=== PATIENT | female | born 1980 | race Caucasian/White ===

== ENCOUNTER 2022-12-19 11:32 | Inpatient (IN) | payer OTHER ==
[~2022-12-19] VITALS: Ht 160 cm; Wt 82.1 kg
[~2022-12-19 11:32] MED LIST: ALPR.5T PO; CPR500T PO; FRS325T PO; OXYC-12 PO; PREN1TAB25 PO
[2022-12-19] MEDS ORDERED: NS IV 1000 ML 1,000 ML IV STA ×2 (11:41→12:19)
[2022-12-19] MEDS ORDERED: ASPIRIN 81 MG CHEWABLE TABLET PO ONE (11:45)
[2022-12-19 11:47] LABS: BASOPHILS # (AUTO) 0.1 10^3/uL (0.0-0.1); BASOPHILS % (AUTO) 0 % (0-10); EOSINOPHILS # (AUTO) 0.1 10^3/uL (0.0-0.3); EOSINOPHILS % (AUTO) 0 % (0-10); HEMATOCRIT 48 % (35-52); HEMOGLOBIN 16.6 g/dL (11.5-16.0); LYMPHOCYTES % (AUTO) 6 % (12-44); MEAN CORPUSCULAR HEMOGLOBIN 32 pg (25-34); MEAN CORPUSCULAR HGB CONC 35 g/dL (32-36); MEAN CORPUSCULAR VOLUME 93 fL (80-99); MEAN PLATELET VOLUME 10.6 fL (9.0-12.2); MONOCYTES # (AUTO) 1.2 10^3/uL (0.0-1.0); MONOCYTES % (AUTO) 4 % (0-12); NEUTROPHILS # (AUTO) 28.5 10^3/uL (1.8-7.8); NEUTROPHILS % (AUTO) 88 % (42-75); PLATELET COUNT 523 10^3/uL (130-400); WHITE BLOOD COUNT 32.4 10^3/uL (4.3-11.0)
--- NOTE | 2022-12-19 11:48 | ED Chest Pain ---
General Chief Complaint: Cardiac/General Problems Stated Complaint: CHEST PAINS Nursing Triage Note: Patient c/o Lt. sided chest pain with shortness of breath that started about 1.5 hrs ago. Patient c/o dizziness and numbness to bilat. hands. Patient states she did become diaphoretic with onset of chest pain. Patient denies any N/V, back into back, up into jaw, or down Lt. Arm. Patient denies any pain into RUQ. Patient states she was at work when her pain started. Patient denies any recent fevers, cough, cold, or congestion. Patient denies any edema to bilat. LE. Source: patient Exam Limitations: no limitations History of Present Illness Date Seen by Provider: Dec 19, 2022 Time Seen by Provider: 11:47 Initial Comments Patient is a 42-year-old female who presents ED with left-sided chest pain. This pain started about an hour and a half ago. 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 She started feeling dizzy with this sharp pressure-like pain to the left-sided chest. She had associated shortness of breath. She states the chest pain has improved. Rates pain 3 out of 10. She started having cramping in her upper extremities. She appeared diaphoretic on arrival. She denies any nausea vomiting but reports diarrhea over the past 2 weeks. She reports between 3-8 episodes of watery stool daily without any blood or mucus. No pain with urination frequent urination. She denies cough, runny nose, sore throat, ear pain. She denies of any known fever. Denies history of coronary artery disease, CHF. She states she she was on a medication for her heart and states this started with a C. Patient denies of any headache, visual changes, unilateral muscle weakness or sensory changes. She does report some abdominal cramping the discomfort of the past 2 weeks. She states she has been eating and drinking but not as much. Denies of any recent antibiotic use. History of C- sections Allergies and Home Medications Allergies Coded Allergies: acetaminophen (Verified Allergy, Unknown, 12/19/22) propoxyphene napsylate (Verified Allergy, Unknown, 12/19/22) Patient Home Medication List Home Medication List Reviewed: Yes Vit#96/Ferrous Fum/Fa ( Tablet) 1 Each Tablet, 1 EACH PO DAILY, (Reported) Entered as Reported by: NERY BARROS on 06/30/122006 Review of Systems Review of Systems Constitutional: No diaphoresis; dizziness, malaise, weakness EENTM: No Eye Pain Respiratory: Denies Cough Cardiovascular: Chest Pain Gastrointestinal: Abdominal Pain, Diarrhea; Denies Nausea, Denies Vomiting Genitourinary: Denies Burning, Denies Discharge, Denies Drainage, Denies Frequency Musculoskeletal: No back pain, No joint pain Skin: No change in color, No change in hair/nails All Other Systems Reviewed Negative Unless Noted: Yes Past Tvdlkzw-Kpynuu-Fwnrcx Hx Immunizations Up To Date Tetanus Booster (TDap): More than 5yrs PED Vaccines UTD: Yes Past Medical History Last Menstrual Period: Dec 19, 2022 Reproductive Disorders: No Sexually Transmitted Disease: No HIV/AIDS: No Physical Exam Vital Signs Vital Signs - First Documented 12/19/22 12/19/22 11:33 11:50 Temp 37.0 Pulse 158 Resp 24 B/P (MAP) 166/131 (143) Pulse Ox 100 O2 Delivery Room Air Capillary Refill : Height, Weight, BMI Height: '" Weight: lbs. oz. kg; 32.00 BMI Method:Stated General Appearance: No Apparent Distress, WD/WN HEENT: PERRL/EOMI, TMs Normal, Normal ENT Inspection, Pharynx Normal Neck: Full Range of Motion, Normal Inspection, Non Tender, Supple Respiratory: Chest Non Tender, Lungs Clear, Normal Breath Sounds, No Accessory Muscle Use, No Respiratory Distress Cardiovascular: No Gallop, No JVD, No Murmur, Tachycardia Gastrointestinal: Normal Bowel Sounds, No Organomegaly, No Pulsatile Mass Extremity: Normal Capillary Refill, Normal Inspection, Normal Range of Motion Neurologic/Psychiatric: Alert, Oriented x3, No Motor/Sensory Deficits, 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, 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 as 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 Skin: Normal Color, Warm/Dry Focused Exam Lactate Level 12/19/22 11:54: Lactic Acid Level 6.95*H Lactic Acid Level Laboratory Tests Test 12/19/22 11:54 Lactic Acid Level 6.95 MMOL/L (0.50-2.00) *H Progress/Results/Core Measures Results/Orders Lab Results Laboratory Tests Test 12/19/22 11:36 12/19/22 11:54 12/19/22 12:03 9/8/23 13:00 Range/Units White Blood Count 32.4 *H 4.3-11.0 10^3/uL Red Blood Count 5.14 H 3.80-5.11 10^6/uL Hemoglobin 16.6 H 11.5-16.0 g/dL Hematocrit 48 35-52 % Mean Corpuscular Volume 93 80-99 fL Mean Corpuscular Hemoglobin 32 25-34 pg Mean Corpuscular Hemoglobin Concent 35 32-36 g/dL Red Cell Distribution Width 14.9 H 10.0-14.5 % Platelet Count 523 H 130-400 10^3/uL Mean Platelet Volume 10.6 9.0-12.2 fL Immature Granulocyte % (Auto) 1 % Neutrophils (%) (Auto) 88 H 42-75 % Lymphocytes (%) (Auto) 6 L 12-44 % Monocytes (%) (Auto) 4 0-12 % Eosinophils (%) (Auto) 0 0-10 % Basophils (%) (Auto) 0 0-10 % Neutrophils # (Auto) 28.5 H 1.8-7.8 10^3/uL Lymphocytes # (Auto) 2.0 1.0-4.0 10^3/uL Monocytes # (Auto) 1.2 H 0.0-1.0 10^3/uL Eosinophils # (Auto) 0.1 0.0-0.3 10^3/uL Basophils # (Auto) 0.1 0.0-0.1 10^3/uL Immature Granulocyte # (Auto) 0.4 H 0.0-0.1 10^3/uL Neutrophils % (Manual) 88 % Lymphocytes % (Manual) 7 % Monocytes % (Manual) 5 % Blood Morphology Comment NORMAL Prothrombin Time 13.7 12.2-14.7 SEC INR Comment 1.0 0.8-1.4 Activated Partial Thromboplast Time 29 24-35 SEC D-Dimer 3.53 H 0.00-0.49 UG/ML Sodium Level 133 L 135-145 MMOL/L Potassium Level 2.6 L 3.6-5.0 MMOL/L Chloride Level 87 L 98-107 MMOL/L Carbon Dioxide Level 19 L 21-32 MMOL/L Anion Gap 27 H 5-14 MMOL/L Blood Urea Nitrogen 11 7-18 MG/DL Creatinine 1.37 H 0.60-1.30 MG/DL Estimat Glomerular Filtration Rate 49 BUN/Creatinine Ratio 8 Glucose Level 152 H 70-105 MG/DL Calcium Level 10.1 8.5-10.1 MG/DL Corrected Calcium 9.8 8.5-10.1 MG/DL Magnesium Level 1.6 1.6-2.4 MG/DL Total Bilirubin 1.4 H 0.1-1.0 MG/DL Aspartate Amino Transf (AST/SGOT) 20 5-34 U/L Alanine Aminotransferase (ALT/SGPT) 21 0-55 U/L Alkaline Phosphatase 160 H 40-136 U/L Myoglobin 154.6 H 10.0-92.0 NG/ML Troponin I < 0.028 <0.028 NG/ML B-Type Natriuretic Peptide 16.0 <100.0 PG/ML Total Protein 8.3 H 6.4-8.2 GM/DL Albumin 4.4 3.2-4.5 GM/DL Lipase 62 8-78 U/L Thyroid Stimulating Hormone (TSH) 1.58 0.35-4.94 UIU/ML Lactic Acid Level 6.95 *H 0.50-2.00 MMOL/L Influenza Type A (RT-PCR) Not Detected Not Detecte Influenza Type B (RT-PCR) Not Detected Not Detecte SARS-CoV-2 RNA (RT-PCR) Not Detected Not Detecte Urine Color YELLOW Urine Clarity CLOUDY Urine pH 5.0 5-9 Urine Specific [place] 1.010 L 1.016-1.022 Urine Protein 2+ H NEGATIVE Urine Glucose (UA) NEGATIVE NEGATIVE Urine Ketones 1+ H NEGATIVE Urine Nitrite NEGATIVE NEGATIVE Urine Bilirubin 1+ H NEGATIVE Urine Urobilinogen 0.2 < = 1.0 MG/DL Urine Leukocyte Esterase NEGATIVE NEGATIVE Urine RBC (Auto) 3+ H NEGATIVE Urine RBC 5-10 H /HPF Urine WBC 2-5 /HPF Urine Squamous Epithelial Cells 25-50 H /HPF Urine Crystals PRESENT H /LPF Urine Amorphous Sediment FEW PRO URATES H /LPF Urine Bacteria FEW H /HPF Urine Casts NONE /LPF Urine Mucus NEGATIVE /LPF Urine Culture Indicated NO Urine Test NEGATIVE NEGATIVE My Orders Orders - THERESA ORNELAS PA Ekg Tracing (12/19/22 11:33) Cbc With Automated Diff (12/19/22 11:41) Magnesium (12/19/22 11:41) Chest 1 View, Ap/Pa Only (12/19/22 11:41) Comprehensive Metabolic Panel (12/19/22 11:41) Myoglobin Serum (12/19/22 11:41) Protime With Inr (12/19/22 11:41) Partial Thromboplastin Time (12/19/22 11:41) O2 (12/19/22 11:41) Monitor-Rhythm Ecg Trace Only (12/19/22 11:41) Ed Iv/Invasive Line Start (12/19/22 11:41) Lipase (12/19/22 11:41) Bnp [place] (12/19/22 11:41) Fibrin Degradation Products (12/19/22 11:41) Troponin I [place] (12/19/22 11:41) Aspirin Chewable Tablet (Aspirin Chewabl (12/19/22 11:45) Ns Iv 1000 Ml (Ns Iv 1000 Ml) (12/19/22 11:41) Thyroid Stimulating Hormone (12/19/22 11:41) Manual Differential (12/19/22 11:36) Blood Culture (12/19/22 11:48) Lactic Acid Analyzer (12/19/22 11:48) Blood Culture (12/19/22 11:48) Piperacillin/Tazobactam (Piperacillin/Ta (12/19/22 12:00) Covid 19 Inhouse Test (12/19/22 11:50) Influenza A And B By Pcr (12/19/22 11:50) Urinalysis (12/19/22 11:53) Hcg,Qualitative Urine (12/19/22 11:53) Potassium Chloride (Tablet) (Potassium C (12/19/22 12:00) Potassium Cl 10meq/50ml Ivpb (Kcl 10 Meq (12/19/22 12:00) Ns Iv 1000 Ml (Ns Iv 1000 Ml) (12/19/22 12:19) Ct [place] Chest/Noang Abd-Pelv W (12/19/22 12:16) Ed Admission (Communication) (12/19/22 13:14) Medications Given in ED Current Medications Medications Dose Ordered Sig/Baljinder Route Start Time Stop Time Status Last Admin Dose Admin Aspirin 324 mg ONCE ONCE PO 12/19/22 11:45 12/19/22 11:46 DC 12/19/22 11:46 324 MG Iohexol 73 ml ONCE ONCE IV 12/19/22 12:45 12/19/22 12:46 DC 12/19/22 12:33 73 ML Piperacillin Sod/ Tazobactam Sod 4.5 gm/Sodium Chloride 100 ml @ 200 mls/hr ONCE ONCE IV 12/19/22 12:00 12/19/22 12:29 DC 12/19/22 12:13 200 MLS/HR Potassium Chloride 40 meq ONCE ONCE PO 12/19/22 12:00 12/19/22 12:01 DC 12/19/22 12:12 40 MEQ Potassium Chloride 50 ml @ 50 mls/hr ONCE ONCE IV 12/19/22 12:00 12/19/22 12:59 DC 12/19/22 12:49 50 MLS/HR Sodium Chloride 100 ml ONCE ONCE IV 12/19/22 12:45 12/19/22 12:46 DC 12/19/22 12:34 80 ML Vital Signs/I&O 12/19/22 12/19/22 12/19/22 11:33 11:50 13:09 Temp 37.0 37.0 Pulse 158 117 Resp 24 18 B/P (MAP) 166/131 (143) 166/122 Pulse Ox 100 O2 Delivery Room Air Room Air Room Air Blood Pressure Mean: 143 Comment Sinus tachycardia with short CT interval, possible atrial flutter, nonspecific ST and T wave abnormality, 155 bpm, QRS duration at 69 MS, QTc 379 MS Departure Communication (PCP) Reviewed previous ER visits, H&P, lab testing. Differential diagnosis, ACS, pericarditis, PE, diverticulitis, colitis, UTI. History of hypertension and smoking. Episode of dizziness left-sided chest pain with shortness of breath and paresthesia in her upper extremities about an hour and a half before arrival. Cramping in her upper extremities. She was tachypneic. Controlled h er breathing which did improve. She had a heart rate of 155. Appears to be in sinus tachycardia. Cardiac work-up was initiated. Rated chest pain 3 out of 10. No recent travels or surgeries. Denies history of coronary artery disease, CHF. Denies of any leg swelling or pain. EKG shows sinus tachycardia at 155 bpm. Generalized lab work was ordered her white blood count came back at 32,000. She was afebrile. Added blood cultures lactic acid and broad-spectrum antibiotics Zosyn. She was started on a liter of fluid. After talking with patient she has been having diarrhea for the past 2 or 3 weeks with some abdomin al pain. Denies of any blood or mucousy stools. No history of inflammatory bowel disease. She was not anemic. Left shift. Chemistry showed sodium 133, potassium 2.6, chloride 87, MARKOS creatinine 1.37, GFR 48, lactic acid 2.95, blood sugar 151, normal BNP and troponin. Elevated D-dimer at 3. Normal TSH. CT angio of the chest with not angio of the lower abdomen pelvis was ordered. CT angio chest was negative for PE, pneumonia. CT abdomen pelvis positive for colitis. COVID influenza was negative. Heart rate improved to about 114. Was started on a second liter of fluid. Pain improved. She received 40 mill equivalent of oral potassium and 10 mEq of IV potassium. Normal magnesium. Does not appear to be cardiac. Patient appears dehydrated with severe sepsis secondary to colitis. Patient was discussed with Dr. Felix hospitalist who agreed to accept patient to cardiac stepdown. Urinalysis without strong evidence of infection but did show hematuria, protein, ketone. Impression Primary Impression: Severe sepsis Additional Impression: Colitis Disposition: ADMITTED INPATIENT Condition: Stable Admissions Decision to Admit Reason: Admit from ER (General) Decision to Admit/Date: Dec 19, 2022 Time/Decision to Admit Time: 13:07 Departure-Patient Inst. Referrals: NERY TRONCOSO MD (PCP/Family) Primary Care Physician THERESA ORNELAS Dec 19, 2022 11:48
[2022-12-19 11:54] LABS: ALBUMIN 4.4 GM/DL (3.2-4.5); CHLORIDE 87 MMOL/L (98-107); POTASSIUM 2.6 MMOL/L (3.6-5.0); SODIUM 133 MMOL/L (135-145)
[2022-12-19 11:55] LABS: CALCIUM 10.1 MG/DL (8.5-10.1)
[2022-12-19 11:56] LABS: GLUCOSE 152 MG/DL (70-105); TOTAL PROTEIN 8.3 GM/DL (6.4-8.2)
[2022-12-19 11:57] LABS: CARBON DIOXIDE 19 MMOL/L (21-32)
[2022-12-19 11:58] LABS: BILIRUBIN,TOTAL 1.4 MG/DL (0.1-1.0)
[2022-12-19 12:00] LABS: ALKALINE PHOSPHATASE 160 U/L (40-136); CREATININE SERUM 1.37 MG/DL (0.60-1.30); GFR ESTIMATED 49
[2022-12-19] MEDS ORDERED: POTASSIUM CL 10MEQ/50ML IVPB 50 ML IV ONE (12:00)
[2022-12-19] MEDS ORDERED: POTASSIUM CHLORIDE 20 MEQ TABLET PO ONE (12:00)
[2022-12-19] MEDS ORDERED: PIPERACILLIN/Tazobactam 4.5 GM in NS (IVPB) 100 ML 100 ML IV ONE (12:00)
[2022-12-19 12:01] LABS: BUN/CREATININE RATIO 8
[2022-12-19 12:03] LABS: ALANINE AMINOTRANSFERASE 21 U/L (0-55); MAGNESIUM 1.6 MG/DL (1.6-2.4)
[2022-12-19 12:04] LABS: LIPASE 62 U/L (8-78)
[2022-12-19 12:06] LABS: FIBRIN DEGRADATION PRODUCTS 3.53 UG/ML (0.00-0.49); PROTHROMBIN TIME PATIENT 13.7 SEC (12.2-14.7)
[2022-12-19 12:19] LABS: LYMPHOCYTES % (MANUAL) 7 %; MONOCYTES % (MANUAL) 5 %; NEUTROPHILS % (MANUAL) 88 %; RBC MORPH NORMAL
[2022-12-19] MEDS ORDERED: HOLD METFORMIN - RECEIVED CONTRAST 20 ML VIAL IV SCH (12:45)
[2022-12-19] MEDS ORDERED: NS 100 ML (IVPB) BAG IV ONE (12:45)
[2022-12-19] MEDS ORDERED: IOHEXOL 350 MG/ML 100 ML (OMNIPAQUE 350) VIAL IV ONE (12:45)
--- NOTE | 2022-12-19 12:49 | Diagnostic Imaging Report ---
INDICATION: Chest pain. TECHNIQUE: Frontal chest obtained at 12:25 p.m. FINDINGS: Heart and mediastinal silhouette are normal in appearance. The lungs are clear. There is no pneumothorax or pleural fluid. IMPRESSION: Negative chest. Dictated by: Dictated on workstation # [id number]
--- NOTE | 2022-12-19 12:52 | Diagnostic Imaging Report ---
INDICATION: generalzied abd pain, dyspnea, chest pain CTA chest, abdomen and pelvis Thin axial sections through the chest, abdomen and pelvis are obtained following intravenous contrast bolus. Multiplanar MIP images were reconstructed and reviewed. All CT scans use one or more of the following dose optimizing techniques: automated exposure control, MA and/or KvP adjustment based on patient size and exam type or iterative reconstruction. CT angiogram chest: The thoracic aorta is normal caliber. No dissection is identified. The pulmonary arterial system is without evidence of thromboembolism. No filling defects are seen within central, lobar or segmental branches. No pericardial or pleural fluid is identified. No pulmonary infiltrates, nodules or masses are detected. IMPRESSION: No evidence of pulmonary embolism or acute aortic disease. CT abdomen and pelvis: Liver demonstrates some mild generalized low-attenuation consistent with hepatic steatosis. Gallbladder is unremarkable. No liver mass or biliary duct dilatation is seen. The pancreas and spleen are unremarkable. Right adrenal gland is unremarkable. There is a mass arising from the left adrenal gland measuring 2.7 x 2.4 cm. This is mixed density and indeterminate. The left kidney is unremarkable. Right kidney does contain a small approximately 2 mm nonobstructing calculus. No ureteral calculi or hydronephrosis is seen. Bladder is decompressed. Aorta is nonaneurysmal. There does appear to be diffuse wall thickening involving the ascending, transverse and descending colon with mild surrounding inflammation consistent with a nonspecific colitis. Small bowel is unremarkable. There is no obstruction. No free fluid or fluid collection is seen. The uterus and ovaries are unremarkable. IMPRESSION: 1. Hepatic steatosis. 2. Nonobstructing right-sided nephrolithiasis. 3. Diffuse colonic wall thickening consistent with nonspecific colitis. Dictated by: Dictated on workstation # [id number]
[2022-12-19 13:12] LABS: BACTERIA,URINE FEW /HPF; BILIRUBIN,URINE 1+ (NEGATIVE); CLARITY,URINE CLOUDY; COLOR,URINE YELLOW; GLUCOSE, URINE (UA) NEGATIVE (NEGATIVE); KETONES,URINE 1+ (NEGATIVE); LEUKOCYTE ESTERASE ,URINE NEGATIVE (NEGATIVE); NITRITE,URINE NEGATIVE (NEGATIVE); PROTEIN,URINE 2+ (NEGATIVE); SQUAMOUS EPITHELIAL CELL,UR 25-50 /HPF
[2022-12-19 13:13] LABS: AMORPHOUS SEDIMENT,UR FEW AMOR URATES /LPF
[2022-12-19] MEDS ORDERED: MILK OF MAGNESIA 400 MG/5 ML 30 ML UDC PO PRN (14:00)
[2022-12-19] MEDS ORDERED: MELATONIN 3 MG TABLET PO PRN (14:00)
[2022-12-19] MEDS ORDERED: ONDANSETRON INJECTION 4 MG/2 ML (SDV) IV PRN (14:00)
[2022-12-19] MEDS ORDERED: BENZONATATE 100 MG CAPSULE PO PRN (14:00)
[2022-12-19] MEDS ORDERED: ANTACID SUSPENSION 30 ML UDC PO PRN (14:00)
[2022-12-19 14:05] VITALS: BP 145/120
[2022-12-19] MEDS: LACTATED RINGERS 1,000 ML 1,000 ML IV SCH ×2 (14:19→20:46)
--- NOTE | 2022-12-19 14:30 | History & Physical-Hospitalist ---
History of Present Illness HPI/Chief Complaint Patient is a 42-year-old female with past medical history of hypertension and tobacco abuse who presented to the emergency department as of breath. She reports she has been sick for roughly 2 weeks with abdominal pain and diarrhea. 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 She was found to be quite tachycardic with a heart rate in the 150s on arrival. EKG revealed this to be sinus tachycardia. Her troponin was negative. Labs returned and she had a leukocytosis of 32,[address] of her chest abdomen and pelvis was done which was concerning for colitis. She was admitted for sepsis. Since getting fluids she reports feeling much better already. She denies any nausea or vomiting mostly to drink if she could. Source: patient Date Seen 12/19/22 Time Seen by a Provider: 14:29 Attending Physician Cynthia Holloway MD PCP Admitting Physician: Jorge Boone MD Attending Physician: Jorge Boone MD Referring Physician Date of Admission Dec 19, 2022 at 13:34 Home Medications & Allergies Home Medications Reviewed patient Home Medication Reconciliation performed by pharmacy medication reconciliations pharmacy technician assistant and/or nursing. Patients Allergies have been reviewed. Allergies Allergies Coded Allergies propoxyphene napsylate (Verified Allergy, Unknown, 12/19/22) Past Uwmwyen-Ucvcvl-Fzthvl Hx Patient Social History Marrital Status: Tobacco Use?: Yes Tobacco type used: Cigarettes Smoking Status: Current Everyday Smoker Approx how many per day: 10 Smokeless Tobacco Frequency: Current Everyday User Use of E-Cig and/or Vaping dev: No Substance use?: No Alcohol Use?: No Alcohol Frequency: Once in a while Pt feels they are or have been: No Immunizations Up To Date Date of Influenza Vaccine: Apr 13, 2012 Hepatitis A: Yes Hepatitis B: Yes PED Vaccines UTD: Yes Current Status status: No status: No Communicates: Verbally Primary Language: Dominican Preferred Spoken Language: Dominican Is interpretation needed?: No Implanted or Applied Medical D: None Past Medical History Hypertension Sexually Transmitted Disease: No HIV/AIDS: No Family Medical History Reviewed Nursing Family Hx No Pertinent Family Hx Review of Systems Constitutional: see HPI Physical Exam Physical Exam Vital Signs Vital Signs - First Documented 12/19/22 12/19/22 11:33 11:50 Temp 37.0 Pulse 158 Resp 24 B/P (MAP) 166/131 (143) Pulse Ox 100 O2 Delivery Room Air Capillary Refill : Less Than 3 Seconds Height, Weight, BMI Height: '" Weight: lbs. oz. kg; 30.85 BMI Method:Stated General Appearance: No Apparent Distress, WD/WN Respiratory: Lungs Clear, No Respiratory Distress Cardiovascular: Regular Rate, Rhythm, No Murmur Gastrointestinal: Normal Bowel Sounds, Non Tender, Soft Extremity: No Calf Tenderness, No Pedal Edema Neurologic/Psychiatric: Alert, Oriented x3 Results Results/Procedures Labs Laboratory Tests 12/19/22 11:36 12/20/22 05:12 Patient resulted labs reviewed. Imaging: Reviewed Imaging Report Imaging [facility]. [place], [place] NAME: HORACIO PALOMARES [facility] REC#: [id number] PT STATUS: REG ER : 1980 PHYSICIAN: THERESA ORNELAS ADMIT DATE: 12/19/22/ER Draft Date of Exam:12/19/22 CT REJI CHEST/NOANG ABD-PELV W INDICATION: generalzied abd pain, dyspnea, chest pain CTA chest, abdomen and pelvis Thin axial sections through the chest, abdomen and pelvis are obtained following intravenous contrast bolus. Multiplanar MIP images were reconstructed and reviewed. All CT scans use one or more of the following dose optimizing techniques: automated exposure control, MA and/or KvP adjustment based on patient size and exam type or iterative reconstruction. CT angiogram chest: The thoracic aorta is normal caliber. No dissection is identified. The pulmonary arterial system is without evidence of thromboembolism. No filling defects are seen within central, lobar or segmental branches. No pericardial or pleural fluid is identified. No pulmonary infiltrates, nodules or masses are detected. IMPRESSION: No evidence of pulmonary embolism or acute aortic disease. CT abdomen and pelvis: Liver demonstrates some mild generalized low-attenuation consistent with hepatic steatosis. Gallbladder is unremarkable. No liver mass or biliary duct dilatation is seen. The pancreas and spleen are unremarkable. Right adrenal gland is unremarkable. There is a mass arising from the left adrenal gland measuring 2.7 x 2.4 cm. This is mixed density and indeterminate. The left kidney is unremarkable. Right kidney does contain a small approximately 2 mm nonobstructing calculus. No ureteral calculi or hydronephrosis is seen. Bladder is decompressed. Aorta is nonaneurysmal. There does appear to be diffuse wall thickening involving the ascending, transverse and descending colon with mild surrounding inflammation consistent with a nonspecific colitis. Small bowel is unremarkable. There is no obstruction. No free fluid or fluid collection is seen. The uterus and ovaries are unremarkable. IMPRESSION: 1. Hepatic steatosis. 2. Nonobstructing right-sided nephrolithiasis. 3. Diffuse colonic wall thickening consistent with nonspecific colitis. Dictated on workstation # [id number] Dict: 12/19/22 1244 Trans: 12/19/22 1252 [id number] Interpreted by: YFN VELAZQUEZ MD Electronically signed by: Assessment/Plan Admission Diagnosis Septic Shock Admission Status: Inpatient Order (span 2 midnights) Reason for Inpatient Admission: see below Assessment and Plan Septic Shock Colitis Leukocytosis with tachycardia and lactic of 6.9 Tachycardia improving Received 2L in the ER and will complete 30cc/kg bolus COntinue IV abx Trend lactic Await cultures Will need outpatient colonoscopy HTN Trend and resume home meds if needed Tobacco abuse 1/2ppd smoker Nicotine patch prn DVT ppx; Lovenox Diagnosis/Problems Diagnosis/Problems (1) Septic shock (2) Hypertension (3) Tobacco abuse Clinical Quality Measures AMI/AHF: ASA po Prior to arrival: JORGE Womack MD Dec 19, 2022 14:30
[2022-12-19] MEDS: ENOXAPARIN 40 MG/0.4 ML SYRINGE SQ SCH (15:20)
[2022-12-19 16:00] VITALS: BP 157/105
[2022-12-19] MEDS: PIPERACILLIN/Tazobactam 4.5 GM in NS (IVPB) 100 ML 100 ML IV SCH (18:06)
[2022-12-19 20:00] VITALS: BP 126/85
[2022-12-19] MEDS ORDERED: hydrALAZINE INJECTION 20 MG/ML VIAL IV PRN (20:15)
[2022-12-20] VITALS (7 sets, daily range): BP systolic 116–172; BP diastolic 70–106
[2022-12-20] MEDS: PIPERACILLIN/Tazobactam 4.5 GM in NS (IVPB) 100 ML 100 ML IV SCH ×3 (01:20→17:28)
[2022-12-20] MEDS: LACTATED RINGERS 1,000 ML 1,000 ML IV SCH ×3 (03:31→16:27)
[2022-12-20 05:28] LABS: BASOPHILS # (AUTO) 0.1 10^3/uL (0.0-0.1); BASOPHILS % (AUTO) 1 % (0-10); EOSINOPHILS # (AUTO) 0.1 10^3/uL (0.0-0.3); EOSINOPHILS % (AUTO) 0 % (0-10); HEMATOCRIT 33 % (35-52); HEMOGLOBIN 11.4 g/dL (11.5-16.0); LYMPHOCYTES # (AUTO) 3.1 10^3/uL (1.0-4.0); LYMPHOCYTES % (AUTO) 23 % (12-44); MEAN CORPUSCULAR HEMOGLOBIN 32 pg (25-34); MEAN CORPUSCULAR HGB CONC 34 g/dL (32-36); MEAN CORPUSCULAR VOLUME 93 fL (80-99); MEAN PLATELET VOLUME 10.5 fL (9.0-12.2); MONOCYTES # (AUTO) 0.7 10^3/uL (0.0-1.0); MONOCYTES % (AUTO) 5 % (0-12); NEUTROPHILS # (AUTO) 9.4 10^3/uL (1.8-7.8); NEUTROPHILS % (AUTO) 70 % (42-75); PLATELET COUNT 374 10^3/uL (130-400); WHITE BLOOD COUNT 13.4 10^3/uL (4.3-11.0)
[2022-12-20 05:35] LABS: ALBUMIN 2.8 GM/DL (3.2-4.5)
[2022-12-20 05:36] LABS: POTASSIUM 2.7 MMOL/L (3.6-5.0)
[2022-12-20 05:37] LABS: CALCIUM 7.9 MG/DL (8.5-10.1)
[2022-12-20 05:38] LABS: TOTAL PROTEIN 5.6 GM/DL (6.4-8.2)
[2022-12-20 05:40] LABS: BILIRUBIN,TOTAL 0.7 MG/DL (0.1-1.0)
[2022-12-20 05:42] LABS: CREATININE SERUM 0.82 MG/DL (0.60-1.30)
[2022-12-20] MEDS ORDERED: POTASSIUM CHLORIDE 20 MEQ TABLET PO ONE (08:30)
[2022-12-20] MEDS ORDERED: POTASSIUM CHLORIDE 20 MEQ TABLET PO NR ×2 (09:00→11:00)
--- NOTE | 2022-12-20 09:16 | Progress Note - Hospitalist ---
Subjective HPI/CC On Admission Date Seen by Provider: Dec 20, 2022 Patient is a 42-year-old female with past medical history of hypertension and tobacco abuse who presented to the emergency department as of breath. She reports she has been sick for roughly 2 weeks with abdominal pain and diarrhea. 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 She was found to be quite tachycardic with a heart rate in the 150s on arrival. EKG revealed this to be sinus tachycardia. Her troponin was negative. Labs returned and she had a leukocytosis of 32,[address] of her chest abdomen and pelvis was done which was concerning for colitis. She was admitted for sepsis. Since getting fluids she reports feeling much better already. She denies any nausea or vomiting mostly to drink if she could. Subjective/Events-last exam Pt reports doing better but still had diarrhea overnight. No other complaints. Tolerating her diet well. Feeling better. Focused Exam Lactate Level 12/19/22 11:54: Lactic Acid Level 6.95*H 12/19/22 14:27: Lactic Acid Level 1.78 Objective Exam Vital Signs Vital Signs Date Time Temp Pulse Resp B/P (MAP) Pulse Ox O2 Delivery O2 Flow Rate FiO2 12/20/22 07:45 36.0 90 18 132/92 (105) 97 Room Air Capillary Refill : Less Than 3 Seconds General Appearance: No Apparent Distress, WD/WN Respiratory: Lungs Clear, No Respiratory Distress Cardiovascular: Regular Rate, Rhythm, No Murmur Gastrointestinal: Normal Bowel Sounds, Soft Neurologic/Psychiatric: Alert, Oriented x3 Results/Procedures Lab Laboratory Tests 12/19/22 11:36 12/20/22 05:12 Patient resulted labs reviewed. Imaging: Reviewed Imaging Report Assessment/Plan Assessment and Plan Assess & Plan/Chief Complaint Septic Shock Colitis Tachycardia improved, lactic acidosis resolved, leukocytosis improved Continue IV abx Await cultures- added stool cultures and c diff study today Will need outpatient colonoscopy but if diarrhea persists will talk to Surgery about possible inpatient scope Add probiotic Transfer to 4th HTN Trend and resume home meds if needed- but relatively well controlled currently Tobacco abuse 1/2ppd smoker Nicotine patch prn DVT ppx; Lovenox Diagnosis/Problems Diagnosis/Problems (1) Septic shock (2) Hypertension (3) Tobacco abuse Clinical Quality Measures AMI/AHF: ASA po Prior to arrival: JORGE Womack MD Dec 20, 2022 09:15
[2022-12-20] MEDS: LACTOBACILLUS ACIDOPHILUS (PROBIOTIC) CAPSULE PO SCH ×2 (13:43→17:28)
[2022-12-20] MEDS: ENOXAPARIN 40 MG/0.4 ML SYRINGE SQ SCH (16:27)
[2022-12-21] MEDS: PIPERACILLIN/Tazobactam 4.5 GM in NS (IVPB) 100 ML 100 ML IV SCH ×3 (02:51→17:26)
[2022-12-21] MEDS: LACTATED RINGERS 1,000 ML 1,000 ML IV SCH ×4 (02:52→17:32)
[2022-12-21 03:05] VITALS: BP 163/119
[2022-12-21 06:34] LABS: BASOPHILS # (AUTO) 0.1 10^3/uL (0.0-0.1); BASOPHILS % (AUTO) 1 % (0-10); EOSINOPHILS % (AUTO) 0 % (0-10); HEMATOCRIT 31 % (35-52); HEMOGLOBIN 10.4 g/dL (11.5-16.0); LYMPHOCYTES # (AUTO) 2.3 10^3/uL (1.0-4.0); LYMPHOCYTES % (AUTO) 21 % (12-44); MEAN CORPUSCULAR HEMOGLOBIN 32 pg (25-34); MEAN CORPUSCULAR HGB CONC 33 g/dL (32-36); MEAN CORPUSCULAR VOLUME 95 fL (80-99); MEAN PLATELET VOLUME 10.8 fL (9.0-12.2); MONOCYTES # (AUTO) 0.5 10^3/uL (0.0-1.0); MONOCYTES % (AUTO) 5 % (0-12); NEUTROPHILS # (AUTO) 7.9 10^3/uL (1.8-7.8); NEUTROPHILS % (AUTO) 73 % (42-75); PLATELET COUNT 335 10^3/uL (130-400); WHITE BLOOD COUNT 10.9 10^3/uL (4.3-11.0)
[2022-12-21 07:06] LABS: ALBUMIN 2.6 GM/DL (3.2-4.5); BILIRUBIN,TOTAL 0.6 MG/DL (0.1-1.0); CREATININE SERUM 0.75 MG/DL (0.60-1.30); POTASSIUM 2.9 MMOL/L (3.6-5.0); TOTAL PROTEIN 5.1 GM/DL (6.4-8.2)
[2022-12-21 07:30] VITALS: BP 163/106
[2022-12-21] MEDS: LACTOBACILLUS ACIDOPHILUS (PROBIOTIC) CAPSULE PO SCH ×3 (08:13→17:23)
[2022-12-21] MEDS ORDERED: amLODIPine 5 MG TABLET PO NR (08:15)
[2022-12-21] MEDS ORDERED: NS IV 500 ML 500 ML IV PRN (10:00)
[2022-12-21] MEDS: POTASSIUM CL 10MEQ/50ML IVPB 50 ML IV SCH ×8 (10:32→17:28)
--- NOTE | 2022-12-21 11:09 | Progress Note - Hospitalist ---
Subjective HPI/CC On Admission Date Seen by Provider: Dec 21, 2022 Patient is a 42-year-old female with past medical history of hypertension and tobacco abuse who presented to the emergency department as of breath. She reports she has been sick for roughly 2 weeks with abdominal pain and diarrhea. 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 She was found to be quite tachycardic with a heart rate in the 150s on arrival. EKG revealed this to be sinus tachycardia. Her troponin was negative. Labs returned and she had a leukocytosis of 32,[address] of her chest abdomen and pelvis was done which was concerning for colitis. She was admitted for sepsis. Since getting fluids she reports feeling much better already. She denies any nausea or vomiting mostly to drink if she could. Subjective/Events-last exam Pt reports doing a little better today. Still having diarrhea but less so. More solid. Focused Exam Lactate Level 12/19/22 11:54: Lactic Acid Level 6.95*H 12/19/22 14:27: Lactic Acid Level 1.78 Objective Exam Vital Signs Vital Signs Date Time Temp Pulse Resp B/P (MAP) Pulse Ox O2 Delivery O2 Flow Rate FiO2 12/21/22 08:00 Room Air 12/21/22 07:30 36.2 83 16 163/106 (125) 96 Capillary Refill : Less Than 3 Seconds General Appearance: No Apparent Distress Respiratory: Lungs Clear, No Respiratory Distress Cardiovascular: Regular Rate, Rhythm, No Murmur Neurologic/Psychiatric: Alert, Oriented x3 Results/Procedures Lab Laboratory Tests 12/21/22 05:44 Patient resulted labs reviewed. Imaging: Reviewed Imaging Report Assessment/Plan Assessment and Plan Assess & Plan/Chief Complaint Septic Shock Colitis Continue IV abx Blood cx negative, c diff negative, await stool cultures Will need outpatient colonoscopy but if diarrhea persists will talk to Surgery about possible inpatient scope Continue probiotic HTN Has been elevated most of night Add amlodipine Tobacco abuse 1/2ppd smoker Nicotine patch prn Hypokalemia POA- from GI losses Add replacement protocol Check mag DVT ppx; Lovenox Diagnosis/Problems Diagnosis/Problems (1) Septic shock (2) Hypertension (3) Tobacco abuse Clinical Quality Measures AMI/AHF: ASA po Prior to arrival: JORGE Womack MD Dec 21, 2022 11:09
[2022-12-21 11:35] VITALS: BP 173/122
[2022-12-21 15:28] VITALS: BP 151/95
[2022-12-21] MEDS: ENOXAPARIN 40 MG/0.4 ML SYRINGE SQ SCH (16:18)
[2022-12-21 20:21] VITALS: BP 161/109
[2022-12-21 23:39] VITALS: BP 162/91
[2022-12-22] MEDS: PIPERACILLIN/Tazobactam 4.5 GM in NS (IVPB) 100 ML 100 ML IV SCH ×2 (01:30→09:31)
[2022-12-22 04:00] VITALS: BP 151/92
[2022-12-22 05:25] LABS: BASOPHILS # (AUTO) 0.1 10^3/uL (0.0-0.1); BASOPHILS % (AUTO) 1 % (0-10); EOSINOPHILS # (AUTO) 0.1 10^3/uL (0.0-0.3); EOSINOPHILS % (AUTO) 1 % (0-10); HEMATOCRIT 31 % (35-52); HEMOGLOBIN 10.2 g/dL (11.5-16.0); LYMPHOCYTES # (AUTO) 2.6 10^3/uL (1.0-4.0); LYMPHOCYTES % (AUTO) 33 % (12-44); MEAN CORPUSCULAR HEMOGLOBIN 32 pg (25-34); MEAN CORPUSCULAR HGB CONC 33 g/dL (32-36); MEAN CORPUSCULAR VOLUME 95 fL (80-99); MEAN PLATELET VOLUME 10.3 fL (9.0-12.2); MONOCYTES # (AUTO) 0.4 10^3/uL (0.0-1.0); MONOCYTES % (AUTO) 5 % (0-12); NEUTROPHILS # (AUTO) 4.8 10^3/uL (1.8-7.8); NEUTROPHILS % (AUTO) 60 % (42-75); PLATELET COUNT 319 10^3/uL (130-400)
[2022-12-22 05:47] LABS: ALBUMIN 2.6 GM/DL (3.2-4.5); BILIRUBIN,TOTAL 0.5 MG/DL (0.1-1.0); CALCIUM 7.9 MG/DL (8.5-10.1); CREATININE SERUM 0.74 MG/DL (0.60-1.30); MAGNESIUM 1.4 MG/DL (1.6-2.4); POTASSIUM 3.4 MMOL/L (3.6-5.0)
[2022-12-22] MEDS ORDERED: MAGNESIUM 1 GM/100 ML IVPB 100 ML IV SCH (06:00)
[2022-12-22] MEDS ORDERED: POTASSIUM CL 10MEQ/50ML IVPB 50 ML IV SCH (06:00)
[2022-12-22] MEDS ORDERED: POTASSIUM CHLORIDE 20 MEQ TABLET PO SCH (06:00)
[2022-12-22] MEDS: MAGNESIUM 1 GM/100 ML IVPB 100 ML IV SCH ×6 (06:16→10:26)
[2022-12-22] MEDS: LACTOBACILLUS ACIDOPHILUS (PROBIOTIC) CAPSULE PO SCH (07:28)
[2022-12-22 08:00] VITALS: BP 155/104
[2022-12-22] MEDS ORDERED: POTASSIUM CHLORIDE 20 MEQ TABLET PO ONE (09:00)
[2022-12-22] MEDS ORDERED: amLODIPine 5 MG TABLET PO SCH (09:00)
[2022-12-22 12:00] VITALS: BP 145/84
== END 2022-12-22 14:00 | disposition home or self-care (01) | DRG 871 ==
LOC: EDUNIT# 11:32 → ER 11:34 → CSD 13:34 → 4TH 12-20 10:30
PROVIDERS: ADMIT Family Medicine; ATTEND Internal Medicine
DX: A41.9 Sepsis, unspecified organism (principal); R65.21 Severe sepsis with septic shock; K52.9 Noninfective gastroenteritis and colitis, unspecified; I10 Essential (primary) hypertension; F17.210 Nicotine dependence, cigarettes, uncomplicated; Z20.822 Contact with and (suspected) exposure to COVID-19; E87.6 Hypokalemia
CPT/HCPCS: 36415; 71045; 71275; 74177; 80053; 81000; 82274; 83605; 83690; 83735; 83874; 83880; 84443; 84484; 84703; 85007; 85025; 85027; 85379; 85610; 85730; 87040; 87324; 87328; 87329; 87449; 87636; 93005; 93041